=== PATIENT | male | born 1990 | race Two or more races ===

== ENCOUNTER 2023-07-01 16:21 | Emergency (ER) | payer OTHER ==
[~2023-07-01] VITALS: Ht 175.3 cm; Wt 81.7 kg
[2023-07-01 16:57] VITALS: TEMP 98.2
[2023-07-01 17:02] VITALS: PULSE 93; RESP 20; O2SAT 96
[2023-07-01] MEDS ORDERED: MORPHINE SULFATE 4 MG/ML SYR/VIAL IV ONE (17:15)
[2023-07-01] MEDS ORDERED: KETAMINE 50mg/ML 10ml Vial (500mg/10ml) IV ONE (17:45)
[2023-07-01] MEDS ORDERED: ETOMIDATE (2MG/ML) 20ML VIAL IV ONE (18:15)
[2023-07-01 19:32] VITALS: BP 126/87; PULSE 101; RESP 18; O2SAT 95
== END 2023-07-01 19:33 | disposition home or self-care (01) ==
LOC: ER 16:21
DX: S43.005A Unspecified dislocation of left shoulder joint, initial encounter (principal); V00.311A Fall from snowboard, initial encounter; Y93.23 Activity, snow (alpine) (downhill) skiing, snowboarding, sledding, tobogganing and snow tubing; Y92.89 Other specified places as the place of occurrence of the external cause; Y99.8 Other external cause status
CPT/HCPCS: 23650; 73020; 73030; 96374; 99152; 99285; J2270